=== PATIENT | male | born 1995 | race Caucasian/White ===

== ENCOUNTER → 2021-11-11 | Outpatient (REF) | payer BC | LOC: M LAB REF 17:03 | PROVIDERS: ATTEND Physician Assistant | DX: J02.9 Acute pharyngitis, unspecified (principal) ==

== ENCOUNTER → 2021-11-15 | Outpatient (REF) | payer BC | LOC: M SFHCDERM 14:11 | PROVIDERS: ATTEND Physician Assistant | DX: D22.5 Melanocytic nevi of trunk (principal) ==